=== PATIENT | female | born 1980 | race Caucasian/White ===

== ENCOUNTER 2016-09-14 11:49 | Emergency (ER) | payer MEDICAID ==
[2009-12-25 05:44] VITALS: BMI 26.1
== END 2016-09-14 13:04 | disposition home or self-care (01) ==
LOC: D.ER 11:49
DX: F41.9 Anxiety disorder, unspecified (principal); F45.8 Other somatoform disorders

== ENCOUNTER 2017-02-04 09:42 | Emergency (ER) | payer MEDICAID ==
[2009-12-25 05:44] VITALS: BMI 26.1
== END 2017-02-04 10:55 | disposition home or self-care (01) ==
LOC: D.ER 09:42
DX: S02.2XXA Fracture of nasal bones, initial encounter for closed fracture (principal); Y04.2XXA Assault by strike against or bumped into by another person, initial encounter; Y93.89 Activity, other specified; Y92.89 Other specified places as the place of occurrence of the external cause; F41.9 Anxiety disorder, unspecified

== ENCOUNTER 2017-02-12 18:09 | Emergency (ER) | payer MEDICAID ==
[2009-12-25 05:44] VITALS: BMI 26.1
[2017-02-14 11:30] VITALS: BMI 25.8
== END 2017-02-12 20:12 | disposition home or self-care (01) ==
LOC: D.ER 18:09
DX: F41.9 Anxiety disorder, unspecified (principal)

== ENCOUNTER 2017-02-14 08:34 | Day surgery (SDC) | payer MEDICAID ==
[~2017-02-14] VITALS: Ht 162.6 cm; Wt 68.0 kg
--- NOTE | ~2017-02-14 | OP ---
PATIENT NAME: TANIA NO MEDICAL RECORD: [id number] :82 LOCATION:[facility] ADMISSION DATE: SURGEON: LIBERTAD SEGOVIA MD OPERATION DATE: 02/14/17 PREOPERATIVE DIAGNOSIS: Very severely displaced nasal fracture and septal fracture. POSTOPERATIVE DIAGNOSIS: Very severely displaced nasal fracture and septal fracture. PROCEDURE: Closed reduction nasal fracture with open repair of septal fracture. SURGEON: Libertad Segovia MD ANESTHESIA: General orotracheal. BLOOD LOSS: Less than 5 milliliters. SPECIMENS: None. NASAL PACKING: Abdi splints bilaterally and Deerfield splint externally. COMPLICATIONS: None. DISPOSITION: Recovery, stable. PROCEDURE IN DETAIL: The patient was brought to the operating room, placed in the supine position, sedated and intubated by anesthesia. She had been decongested with Afrin preoperatively. The septum and floor of the nose were injected with a total of 1.5 cubic centimeters of 1% Lidocaine with 100,000 epinephrine and Afrin pledgets were placed bilaterally. She was positioned, prepped and draped in the usual sterile fashion for nasal surgery. The skin and nose was cleaned with alcohol. Then the Afrin pledgets were removed. Both sides were examined with the nasal speculum. She had a very severe septal deflection coming right to the tip of the nasal spine. It was basically folded over a 90 degree angle. Her entire nasal dorsum was basically folded down onto the frontal process on the maxilla on the right side. Using a Boies elevator on the left side and digital pressure, the fracture was reduced. There was extremely comminuted nasal fracture, did not give much support to the left side of the nasal pyramid at all, but the nasal fracture was very freely mobile. Once that was done, then a left-sided Khurram incision was made, ipsilateral mucoperichondrial flap was elevated and with a Jeyson it was dissected over the fractured septum. A little bit of the redundant cartilage on the floor of the nose was removed. Along the fracture line a little bit of cartilage was removed to allow it to lie back flat in the nose, some relaxing incisions were made creating pedicles up to the nasal dorsum to allow free movement of the nasal deformity and relaxation of the C-shaped deformity of the nose. A bony spur was removed on the left side and then both inferior turbinates were cauterized and outfractured to give a little bit more room in the nose. Then there is still a little bit of asymmetry of the nostrils, but it appeared to be just from the ala themselves and not from the septal fracture even with everything very straight. When the septum was completely reduced, the Clinchco incision was closed with interrupted 4-0 chromic and then Abdi splints were placed bilaterally. Then again the nose was carefully reduced. The Abdi splints were sutured through the anterior septum with 2-0 Prolene on a Justin needle. Mupirocin ointment was placed in the nose and the nose was again carefully cleaned with alcohol, Mastisol, Steri-Strips were applied and a Deerfield splint was cut to size and placed all while keeping the OPERATIVE REPORT [id number] TANIA NO nose nicely reduced for this very freely mobile fracture. With that completed, she was awakened, extubated, transported to recovery in good condition. No complications. LIBERTAD SEGOVIA MD CC: [id number] DICTATION DATE: 02/14/17 1200 OUTSIDE INSTALLER APPRENTICE: DM 02/17/17 0907 [facility] [place] 02/14/17 [facility] [address] [place] [address]
[2017-02-14 11:12] LABS: HEMATOCRIT 38.6 % (36.0-48.0); HEMOGLOBIN 12.6 g/dL (12-16); MCH 27.4 pg (26.0-34.0); MCHC 32.6 g/dL (31.0-37.0); MCV 83.9 fL (80.0-100.0); MEAN PLATELET VOLUME 12.2 fL (7.4-10.4); RBC 4.6 10x6/uL (4.00-5.40); RDW 15.2 % (11.5-14.5); WBC 7.2 10x3/uL (4.8-10.8)
[2017-02-14 11:30] VITALS: BP 123/76; Ht 162.6 cm; Wt 68.0 kg
--- NOTE | 2017-02-14 18:16 | NUR ---
1740--IV DC'D, PT UP TO DRESS. TAYLER BROCK 4410--DISCHARGE INSTRUCTIONS GIVEN, PT VERBALIZES UNDERSTANDING. PT OFF UNIT VIA WC. TAYLER BROCK
== END 2017-02-14 17:50 | disposition home or self-care (01) ==
LOC: D.OPS 08:34 → D.PAN 11:00 → D.OPS 12:15 → D.PAN 12:15 → D.OPS 17:50
PROVIDERS: Anesthesiology
DX: S02.2XXA Fracture of nasal bones, initial encounter for closed fracture (principal); J34.2 Deviated nasal septum; X58.XXXA Exposure to other specified factors, initial encounter; Z01.812 Encounter for preprocedural laboratory examination

== ENCOUNTER 2018-07-24 13:41 | Emergency (ER) | payer SELFPAY ==
[~2018-07-24] VITALS: Ht 162.6 cm; Wt 88.6 kg
[2018-07-24 14:08] VITALS: BP 128/86; Ht 162.6 cm; Wt 88.6 kg
[2018-07-24] MEDS ORDERED: OMEPRAZOLE20 M1 PO (14:09)
[2018-07-24] MEDS ORDERED: ZANTAC300 MG PO (14:09)
== END 2018-07-24 15:58 | disposition left against medical advice (07) ==
LOC: D.ER 13:41
DX: F41.9 Anxiety disorder, unspecified (principal)